=== PATIENT | female | born 1980 | race African-American/Black ===

== ENCOUNTER 2016-07-30 08:59 | Emergency (ER) | payer OTHER ==
[~2016-07-30] VITALS: Ht 154.9 cm; Wt 49.7 kg
[~2016-07-30 08:59] MED LIST: DOCUSATE CALCI240 MG PO; MIRALAX255 GM PO; MOTRIN600 MG PO; MOTRIN800 MG PO; NAPROSYN500 MG PO; NOHOMEMEDS; NORCO 5/3251 TABLET PO; PEN-VEE K,VEET500 MG PO; PREDNISONE10 M1 PO; SENNA8.6 M1 PO; ZOFRAN ODT4 MG PO
[2016-07-30] MEDS ORDERED: ERYTHROMYC1 APPLICAT LEFT EYE (09:35)
[2016-07-30 09:49] VITALS: BP 99/71
== END 2016-07-30 09:50 | disposition home or self-care (01) ==
LOC: EME 08:59
DX: H10.32 Unspecified acute conjunctivitis, left eye (principal); F17.200 Nicotine dependence, unspecified, uncomplicated
CPT/HCPCS: 99281; 99284

== ENCOUNTER 2016-08-08 06:57 | Emergency (ER) | payer OTHER ==
[~2016-08-08] VITALS: Ht 154.9 cm; Wt 47.4 kg
[~2016-08-08 06:57] MED LIST changes: +ERYTHROMYC1 APPLICAT LEFT EYE
[2016-08-08 07:01] VITALS: BP 113/74
== END 2016-08-08 08:55 | disposition home or self-care (01) ==
LOC: EME 06:57
DX: R10.10 Upper abdominal pain, unspecified (principal); F17.200 Nicotine dependence, unspecified, uncomplicated
CPT/HCPCS: 99281; 99284

== ENCOUNTER 2016-09-23 09:07 | Emergency (ER) | payer OTHER ==
[~2016-09-23] VITALS: Ht 154.9 cm; Wt 48.6 kg
[2016-09-23 11:38] VITALS: BP 112/61
== END 2016-09-23 11:46 | disposition home or self-care (01) ==
LOC: EME 09:07
DX: J02.9 Acute pharyngitis, unspecified (principal)
CPT/HCPCS: 87651 90; 99281; 99284

== ENCOUNTER 2017-01-10 11:07 | Emergency (ER) | payer OTHER ==
[~2017-01-10] VITALS: Ht 154.9 cm; Wt 46.0 kg
[2017-01-10 11:54] LABS: ADD MIUA? YES; BILIRUBIN NEGATIVE; BLOOD SMALL; COLOR YELLOW ((YELLOW)); GLUCOSE (STRIP) NEGATIVE; KETONES NEGATIVE; LEUKOCYTES NEGATIVE; NITRITE NEGATIVE; PROTEIN (STRIP) 100; SPECIFIC GRAVITY 1.019 (1.000-1.030); UROBILINOGEN 0.2 MG/DL (0.2-1.0)
[2017-01-10 12:03] LABS: BACTERIA RARE /HPF; EPITHELIAL CELLS 1+ /HPF; MUCUS 4+ /LPF; WHITE BLOOD CELLS 0-5 /HPF (0-5)
[2017-01-10 13:05] LABS: HEMATOCRIT 35.4 % (36.0-46.0); MCH 21.4 PG (29.0-34.0); MCHC 28.5 G/DL (30.0-36.0); MEAN PLAT.VOLUME 10.5 uM^3 (9.5-12.4); PLATELET COUNT 284 K/uL (156-360); RBC DIS.WIDTH-CV 19.1 % (11.8-14.6); RBC DIS.WIDTH-SD 50.9 % (39-53); RED BLOOD COUNT 4.72 M/uL (3.80-5.20); WHITE BLOOD COUNT 5.5 K/uL (4.1-10.2)
[2017-01-10 13:14] LABS: CHLORIDE 104 mEq/L (99-109); POTASSIUM 3.3 mEq/L (3.7-5.4); SODIUM 136 mEq/L (136-147)
[2017-01-10 13:16] LABS: GLUCOSE 95 mg/dL (70-99)
[2017-01-10 13:18] LABS: ANION GAP 9 MEQ/L (2-14); TOTAL BILIRUBIN 0.3 mg/dL (0.0-1.0)
[2017-01-10 13:20] LABS: ALKALINE PHOSPHATASE 89 IU/L (3-129); GFR ESTIMATE (CALCULATED) > 59 mL/min/
[2017-01-10 13:21] LABS: UREA NITROGEN (BUN) 5 mg/dL (9-23)
[2017-01-10 13:23] LABS: LIPASE 28 U/L (1.0-51.0)
[2017-01-10 13:31] LABS: QUANTITATIVE HCG < 4.0 MIU/ML
[2017-01-10] MEDS ORDERED: BENTYL20 MG PO (13:49)
[2017-01-10] MEDS ORDERED: ZOFRAN ODT4 MG PO (13:49)
[2017-01-10 14:00] VITALS: BP 129/67
== END 2017-01-10 14:01 | disposition home or self-care (01) ==
LOC: EME 11:07
PROVIDERS: Physician Assistant
DX: R11.2 Nausea with vomiting, unspecified (principal); R10.84 Generalized abdominal pain; R19.7 Diarrhea, unspecified; F17.200 Nicotine dependence, unspecified, uncomplicated
CPT/HCPCS: 74020; 80053; 81003; 83690; 84702; 85027; 99281; 99284

== ENCOUNTER 2017-09-01 09:50 | Emergency (ER) | payer OTHER ==
[~2017-09-01] VITALS: Ht 154.9 cm; Wt 48.1 kg
[~2017-09-01 09:50] MED LIST changes: +BENTYL20 MG PO
[2017-09-01] MEDS ORDERED: PREDNISONE20 MG PO (11:17)
[2017-09-01] MEDS ORDERED: FLONASE16 G1 BOTH NARES (11:17)
[2017-09-01 11:45] VITALS: BP 103/71
== END 2017-09-01 11:46 | disposition home or self-care (01) ==
LOC: EME 09:50
DX: J02.9 Acute pharyngitis, unspecified (principal); R05 Cough; R51 Headache; F17.200 Nicotine dependence, unspecified, uncomplicated
CPT/HCPCS: 87651 90; 99281; 99283

== ENCOUNTER 2017-12-03 10:11 | Emergency (ER) | payer OTHER ==
[~2017-12-03] VITALS: Ht 154.9 cm; Wt 45.9 kg
[~2017-12-03 10:11] MED LIST changes: +FLONASE16 G1 BOTH NARES; +PREDNISONE20 MG PO
[2017-12-03 12:58] VITALS: BP 103/77
== END 2017-12-03 12:59 | disposition home or self-care (01) ==
LOC: EME 10:11
DX: S05.02XA Injury of conjunctiva and corneal abrasion without foreign body, left eye, initial encounter (principal); X58.XXXA Exposure to other specified factors, initial encounter; F17.200 Nicotine dependence, unspecified, uncomplicated
CPT/HCPCS: 99281; 99284